=== PATIENT | male | born 1960 | race Caucasian/White ===

== ENCOUNTER 2016-03-19 04:43 | Emergency (ER) | payer BC, OTHER ==
[~2016-03-19] VITALS: Ht 172.7 cm; Wt 60.9 kg
[~2016-03-19 04:43] MED LIST: ASPIRIN BUFFER325 MG PO; ASPIRIN325 MG PO; AUGMENTIN875 MG PO; CELEBREX50 MG PO; DURAGESIC75 MCG TD; KEFLEX500 MG PO; LEXAPRO10 MG PO; LYRICA25 MG PO; LYRICA50 MG PO; METAXALONE800 MG PO; METHADONE5 MG PO; METHADOSE5 MG PO; PREVACID30 MG PO; PRINIVIL5 MG PO; SIMVASTATIN10 MG PO; SKELAXIN400 M1 PO; STOOL SOFTENER100 MG PO; TOPROL XL6.25 MG PO; ZANAFLEX4 M1 PO; [UNRECOGNIZED DRUG - OTHER]
[2016-03-19 06:12] VITALS: BP 121/77
== END 2016-03-19 06:21 | disposition home or self-care (01) ==
LOC: EME 04:43
DX: S12.9XXA Fracture of neck, unspecified, initial encounter (principal); S01.21XA Laceration without foreign body of nose, initial encounter; E78.5 Hyperlipidemia, unspecified; I10 Essential (primary) hypertension; F17.200 Nicotine dependence, unspecified, uncomplicated; W10.9XXA Fall (on) (from) unspecified stairs and steps, initial encounter; Z23 Encounter for immunization; Z95.5 Presence of coronary angioplasty implant and graft; Z71.6 Tobacco abuse counseling
CPT/HCPCS: 70450; 70486; 72125; 73130; 73564; 99281; 99284

== ENCOUNTER 2016-04-12 18:52 | Inpatient (IN) | payer BC, OTHER ==
[~2016-04-12] VITALS: Ht 172.7 cm; Wt 58.0 kg
[2016-04-12 20:02] LABS: HEMATOCRIT 38.1 % (38.0-50.0); MCH 31.6 PG (29.0-34.0); MCHC 34.1 G/DL (30.0-36.0); MCV 92.5 FL (86-99); MEAN PLAT.VOLUME 10.1 uM^3 (9.0-12.4); PLATELET COUNT 388 K/uL (156-360); RBC DIS.WIDTH-SD 42.5 % (39-53); RED BLOOD COUNT 4.12 M/uL (4.00-5.50); WHITE BLOOD COUNT 14.9 K/uL (4.1-10.2)
[2016-04-12 20:03] LABS: BASOPHIL COUNT 0.1 K/uL (0-0.1); EOSINOPHIL (%) 7.7 % (0-5); EOSINOPHIL COUNT 1.2 K/uL (0-0.3); IMMATURE GRANULOCYTE (%) 0.2 % (0.0-0.7); IMMATURE GRANULOCYTE COUNT 0.3 K/uL; LYMPHOCYTE COUNT 4.3 K/uL (1.0-2.8); MONOCYTE (%) 7.2 % (3-12); MONOCYTE COUNT 1.1 K/uL (0-0.8); NEUTROPHIL (%) 55.6 % (45-76); NEUTROPHIL COUNT 8.3 K/uL (1.8-6.4)
[2016-04-12 20:10] LABS: CHLORIDE 106 mEq/L (99-109)
[2016-04-12 20:11] LABS: AMYLASE 43 IU/L (1-118); MAGNESIUM 1.8 mg/dL (1.3-2.7); POTASSIUM 3.4 mEq/L (3.7-5.4); SODIUM 139 mEq/L (136-147)
[2016-04-12 20:13] LABS: GLUCOSE 125 mg/dL (70-99)
[2016-04-12 20:14] LABS: ANION GAP 7 MEQ/L (2-14)
[2016-04-12 20:16] LABS: GFR ESTIMATE (CALCULATED) > 59 mL/min/; SERUM ETHYL ALCOHOL < 10 mg/dL
[2016-04-12 20:17] LABS: UREA NITROGEN (BUN) 14 mg/dL (9-23)
[2016-04-12 20:19] LABS: LIPASE 11 U/L (1.0-51.0)
[2016-04-12 20:20] LABS: CREATINE KINASE 191 IU/L (1-294)
[2016-04-12 20:26] LABS: PROTHROMBIN TIME 10.2 (9.2-11.2); PTT 27.5 (25-32); TROP-I INTERPRETATION NEGATIVE; TROPONIN-I 0.03 ng/mL (0.0-0.30)
[2016-04-12 20:54] LABS: HEMATOLOGY COMMENT 1 SMEAR COMPATIBLE; USER ID VLB
[2016-04-12 21:27] VITALS: BP 97/58
[2016-04-12 21:45] VITALS: BP 99/56
[2016-04-12 22:00] VITALS: BP 99/60
[2016-04-12 22:15] VITALS: BP 99/63
[2016-04-12 22:45] VITALS: BP 105/45
[2016-04-12 23:00] VITALS: BP 109/67
[2016-04-13] VITALS (23 sets, daily range): BP systolic 93–122; BP diastolic 51–77
[2016-04-13] LABS: METH RESISTANT S AUREUS PCR NEGATIVE (NEGATIVE)
[2016-04-13] LABS: TOTAL CK 999 IU/L (1-294)
[2016-04-13 00:01] LABS: CREATINE KINASE 999 IU/L (1-294)
[2016-04-13 00:02] LABS: PROBE CHECK PASS; SPECIMEN PROCESSING CONTROL PASS
[2016-04-13 00:05] LABS: TROP-I INTERPRETATION POSITIVE
[2016-04-13 00:06] LABS: CK-MB 95.6 ng/mL (0.0-4.9)
[2016-04-13 00:09] LABS: TROPONIN-I 13.79 ng/mL (0.0-0.30)
[2016-04-13 05:29] LABS: HEMATOCRIT 37.9 % (38.0-50.0); MCH 31.8 PG (29.0-34.0); MCV 93.3 FL (86-99); MEAN PLAT.VOLUME 10.4 uM^3 (9.0-12.4); PLATELET COUNT 385 K/uL (156-360); RBC DIS.WIDTH-CV 13.3 % (11.8-14.6); RBC DIS.WIDTH-SD 45.2 % (39-53); RED BLOOD COUNT 4.06 M/uL (4.00-5.50); WHITE BLOOD COUNT 12.3 K/uL (4.1-10.2)
[2016-04-13 05:50] LABS: BASOPHIL COUNT 0.1 K/uL (0-0.1); EOSINOPHIL (%) 3.7 % (0-5); EOSINOPHIL COUNT 0.5 K/uL (0-0.3); IMMATURE GRANULOCYTE (%) 0.2 % (0.0-0.7); LYMPHOCYTE COUNT 3.8 K/uL (1.0-2.8); MONOCYTE (%) 4.5 % (3-12); MONOCYTE COUNT 0.6 K/uL (0-0.8); NEUTROPHIL (%) 60.2 % (45-76); NEUTROPHIL COUNT 7.4 K/uL (1.8-6.4)
[2016-04-13 06:12] LABS: ANION GAP 6 MEQ/L (2-14); CHLORIDE 106 MEQ/L (99-109); CREATINE KINASE 709 IU/L (1-294); GFR ESTIMATE (CALCULATED) > 59 mL/min/; GLUCOSE 155 mg/dL (70-99); HDL CHOLESTEROL 31 MG/DL (Desirable>=40); LDL CHOLESTEROL 45 mg/dL (Desirable<100); NON-HDL CHOLESTEROL 68 mg/dL (Desirable<160); SAMPLE HEMOLYSIS CHECK 0; SAMPLE ICTERIC CHECK 0; SAMPLE LIPEMIA CHECK 0; SODIUM 138 MEQ/L (136-147); TOTAL CHOLESTEROL 99 mg/dL (Desirable<200); TOTAL CK 709 IU/L (1-294); TRIGLYCERIDES 113 MG/DL (Normal: <150); UREA NITROGEN (BUN) 9 mg/dL (9-23)
[2016-04-13 06:20] LABS: TROP-I INTERPRETATION POSITIVE
[2016-04-13 06:33] LABS: POTASSIUM 4.2 MEQ/L (3.7-5.4)
[2016-04-13 06:49] LABS: TROPONIN-I 43.67 ng/mL (0.0-0.30)
[2016-04-13 07:06] LABS: CK-MB 90.2 ng/mL (0.0-4.9)
[2016-04-13 07:48] LABS: Estimated Average Glucose 114 mg/dL (70-123); HEMOGLOBIN A1c (GLYCOHEMOGLOB) 5.6 % HGB (Below 5.7)
[2016-04-13 13:10] LABS: CREATINE KINASE 577 IU/L (1-294); TOTAL CK 577 IU/L (1-294)
[2016-04-13 13:14] LABS: TROP-I INTERPRETATION POSITIVE
[2016-04-13 13:15] LABS: CK-MB 58.6 ng/mL (0.0-4.9)
[2016-04-13 13:22] LABS: TROPONIN-I 29.21 ng/mL (0.0-0.30)
[2016-04-14 04:46] VITALS: BP 111/63
[2016-04-14 07:29] VITALS: BP 103/64
[2016-04-14] MEDS ORDERED: NICOTINE PATCH1 EAC2 TD (10:48)
[2016-04-14] MEDS ORDERED: ATORVASTATIN CA80 MG PO (10:49)
[2016-04-14] MEDS ORDERED: BRILINTA90 MG PO (10:49)
[2016-04-14] MEDS ORDERED: NITROSTAT0.4 MG SL (10:50)
[2016-04-14] MEDS ORDERED: ASPIR-LOW81 MG PO (10:51)
[2016-04-14] MEDS ORDERED: LOPRESSOR25 MG PO (10:51)
[2016-04-14 11:12] VITALS: BP 100/52
== END 2016-04-14 13:01 | disposition home or self-care (01) | DRG 247 ==
LOC: EME 18:52 → CATH 20:00 → EME 20:00 → 4WEST 21:06 → 4EAST 21:06 → 4WEST 04-13 12:13 → 4EAST 04-13 23:48
PROVIDERS: Anesthesiology; Internal Medicine Cardiovascular Disease; Physician Assistant
PROC: B211YZZ Fluoroscopy of Multiple Coronary Arteries using Other Contrast (ICD-10-PCS; principal; 2016-04-12)
PROC: 4A023N7 Measurement of Cardiac Sampling and Pressure, Left Heart, Percutaneous Approach (ICD-10-PCS; principal; 2016-04-12)
PROC: 027035Z Dilation of Coronary Artery, One Artery with Two Drug-eluting Intraluminal Devices, Percutaneous Approach (ICD-10-PCS; principal; 2016-04-12)
PROC: B215YZZ Fluoroscopy of Left Heart using Other Contrast (ICD-10-PCS; principal; 2016-04-12)
DX: I21.19 ST elevation (STEMI) myocardial infarction involving other coronary artery of inferior wall (principal); F17.200 Nicotine dependence, unspecified, uncomplicated; I25.10 Atherosclerotic heart disease of native coronary artery without angina pectoris; I10 Essential (primary) hypertension; I34.0 Nonrheumatic mitral (valve) insufficiency; I25.2 Old myocardial infarction; Z95.5 Presence of coronary angioplasty implant and graft; E78.5 Hyperlipidemia, unspecified; G89.29 Other chronic pain
CPT/HCPCS: 71010; 80048; 80061; 81003; 82150; 82550; 82550 91; 82553; 83036; 83605; 83690; 83735; 84484; 85025; 85027; 85347; 85610; 85730; 86850; 86870; 86900; 86901; 86920; 87641; 93005; 99281; 99285; C1725; C1769; C1874; C1887; G0480; J0153; J0461; J0583; J1644; J2250; J2270; J2405; J3010; J3246; J7030; J7050